=== PATIENT | female | born 1960 | race Two or more races ===

== ENCOUNTER 2020-03-01 16:21 | Emergency (ER) | payer MEDICAID, OTHER ==
[~2020-03-01] VITALS: Ht 160 cm; Wt 59.0 kg
[2020-03-01 16:21] VITALS: BP 120/92
[~2020-03-01 16:21] MED LIST: ALBUTEROL SULF8.5 GM INH; LEVAQUIN750 MG ORAL; NKM
--- NOTE | 2020-03-01 16:21 | NUR ---
ED Nurse Note: Patient DOMENICA RAApolinar from home c/o generalized weakness. Per EMS, a licensed master social worker came by for wellness check and said pt is weaker than usual and looks like she has not been eating well. Pt is AAOx2, verbally responsive. Not in acute distress. Pt placed on quality assurance monitor body. ERMD at bedside.
--- NOTE | 2020-03-01 16:33 | Emergency Room Report ---
History of Present Illness General Chief Complaint: Generalized Weakness Source: Patient Present Illness HPI Disclaimer: Please note that this report is being documented using DRAGON technology. This can lead to erroneous entry secondary to incorrect interpretation by the dictating instrument. HPI: 59-year-old female with no reported medical history presents for evaluation of generalized weakness. She arrives by EMS. Story is somewhat difficult to obtain from patient however according to EMS it seems either a neighbor or social secretary called EMS over concern that she has not been eating and has been generally weak, unable to move around her house. The patient herself denies any complaints at this time aside from feeling weak. Patient reported some dizziness earlier in the day but denied syncope. Currently denies dizziness. She denies chest pain, palpitations, shortness of breath, nausea, vomiting, diarrhea. PMH: Denied PSH: Denied Allergies: Denied Social Hx: Denied alcohol, tobacco or drug use Allergies: Coded Allergies: No Known Allergies (Unverified , 03/07/14) COVID-19 Screening Contact w/high risk pt: No Recent Travel to affected area: No Experienced COVID-19 symptoms?: No COVID-19 Testing performed BACK PADDER: No Patient History Last Menstrual Period: na Nursing Documentation-PMH Past Medical History: No History, Except For History Of Psychiatric Problem: Yes Review of Systems All Other Systems: negative except mentioned in HPI Physical Exam Vital Signs Date Time Temp Pulse Resp B/P (MAP) Pulse Ox O2 Delivery O2 Flow Rate FiO2 03/01/20 16:13 98.2 106 20 120/92 (101) 98 Room Air General: Awake and alert, no acute distress HEENT: NC/AT. EOMI. PERRLA. Cardiovascular: Slightly tachycardic. S1 and S2 normal. No murmur appreciated Resp: Normal work of breathing. No cough, wheezing or crackles appreciated Abdomen: Abdomen is soft, nondistended. Nontender Skin: Intact. No abrasions, laceration or rash over the exposed skin MSK: Normal tone and bulk. Moving all extremities. No obvious deformity. No lower extremity edema Neuro: Awake and alert. Mentating appropriately. Procedures Critical Care Time Critical Care Time Total critical care time: Approximately 31 minutes Due to a high probability of clinically significant, life threatening deterioration, the patient required the highest level of preparedness to intervene emergently and I personally spent this critical care time directly and personally managing the patient. This critical care time included obtaining a history, examining the patient, pulse oximetry, ordering and reviewing studies , ordering treatments, evaluating response to treatment and updating management plan as needed, frequent reassessment and discussion with other providers as well as arranging for ultimate disposition. This critical to care time was performed to assess and manage the high probability of life-threatening deterioration that could result in multiorgan failure. This critical care time is separate from the separately billable procedures and treating other patients. Medical Decision Making Diagnostic Impression: Primary Impression: UTI (urinary tract infection) Additional Impressions: Weakness Dehydration Hypokalemia ER Course This a 59-year-old female presenting for evaluation of generalized weakness and dizziness. Differential includes was not limited to malnutrition, dehydration, electrolyte abnormality, ACS, UTI to name a few. Similar presentation several weeks ago patient was transferred to a short-term hospital. Will obtain EKG, broad labs, provide IV fluids. She is in no distress at this time arrives slightly tachycardic but otherwise normal vital signs. Laboratory Tests Test 03/01/20 16:46 03/01/20 17:50 White Blood Count 10.1 K/UL (4.8-10.8) Red Blood Count 3.59 M/UL (4.20-5.40) L Hemoglobin 9.0 G/DL (12.0-16.0) L Hematocrit 29.2 % (37.0-47.0) L Mean Corpuscular Volume 81 FL (80-99) Mean Corpuscular Hemoglobin 25.1 PG (27.0-31.0) L Mean Corpuscular Hemoglobin Concent 30.8 G/DL (32.0-36.0) L Red Cell Distribution Width 19.7 % (11.6-14.8) H Platelet Count 366 K/UL (150-450) Mean Platelet Volume 8.4 FL (6.5-10.1) Neutrophils (%) (Auto) 59.5 % (45.0-75.0) Lymphocytes (%) (Auto) 36.3 % (20.0-45.0) Monocytes (%) (Auto) 2.9 % (1.0-10.0) Eosinophils (%) (Auto) 0.4 % (0.0-3.0) Basophils (%) (Auto) 0.9 % (0.0-2.0) Sodium Level 153 MMOL/L (136-145) H Potassium Level 2.7 MMOL/L (3.5-5.1) *L Chloride Level 113 MMOL/L (98-107) H Carbon Dioxide Level 22 MMOL/L (21-32) Anion Gap 19 mmol/L (5-15) H Blood Urea Nitrogen 44 mg/dL (7-18) H Creatinine 1.2 MG/DL (0.55-1.30) Estimated Glomerular Filtration Rate 45.7 mL/min (>60) Glucose Level 112 MG/DL (74-106) H Calcium Level 13.0 MG/DL (8.5-10.1) H Phosphorus Level 2.2 MG/DL (2.5-4.9) L Magnesium Level 2.1 MG/DL (1.8-2.4) Total Bilirubin 0.2 MG/DL (0.2-1.0) Aspartate Amino Transferase (AST) 18 U/L (15-37) Alanine Aminotransferase (ALT) 16 U/L (12-78) Alkaline Phosphatase 140 U/L (46-116) H Troponin I 0.018 ng/mL (0.000-0.056) Total Protein 6.4 G/DL (6.4-8.2) Albumin 2.9 G/DL (3.4-5.0) L Globulin 3.5 g/dL Albumin/Globulin Ratio 0.8 (1.0-2.7) L Urine Color Brown Urine Appearance Cloudy Urine pH 6 (4.5-8.0) Urine Specific [place] 1.025 (1.005-1.035) Urine Protein 3+ (NEGATIVE) H Urine Glucose (UA) Negative (NEGATIVE) Urine Ketones 2+ (NEGATIVE) H Urine Blood 2+ (NEGATIVE) H Urine Nitrite Negative (NEGATIVE) Urine Bilirubin 2+ (NEGATIVE) H Urine Ictotest Negative (NEGATIVE) Urine Urobilinogen Normal MG/DL (0.0-1.0) Urine Leukocyte Esterase 3+ (NEGATIVE) H Urine RBC 5-10 /HPF (0 - 2) H Urine WBC Tntc /HPF (0 - 2) H Urine Squamous Epithelial Cells Many /LPF (NONE/OCC) H Urine Bacteria Many /HPF (NONE) H EKG Diagnostic Results EKG Time: 16:44 Rate: tachycardiac Rhythm: NSR ST Segments: no acute changes Other Impression Sinus tachycardia, normal axis, normal intervals, nonspecific T wave flattening Rhythm Strip Diag. Results Rhythm Strip Time: 16:44 EP Interpretation: yes Rate: 110s Rhythm: no PVC's, no ectopy Reevaluation Time: 20:18 Last Vital Signs Date Time Temp Pulse Resp B/P (MAP) Pulse Ox O2 Delivery O2 Flow Rate FiO2 03/01/20 16:13 98.2 106 20 120/92 (101) 98 Room Air Reevaluation Impression CBC shows a normocytic anemia with a hemoglobin of 9.0. Chemistry shows a critically low potassium at 2.7 without EKG changes. Sodium elevated 153 as his BUN consistent with dehydration. Creatinine within normal range at 1.2. Troponin within normal limits. Urinalysis concerning for acute urinary tract infection with positive inflammatory markers, innumerable white cells and many bacteria. She is receiving ceftriaxone and IV and oral potassium. Patient initially presented tachycardic but all vital signs are now within normal limits. Patient is in no distress. Patient will require admission and she will be transferred to [facility], per her insurance plan Disposition: SHORT-TERM HOSP Condition: Stable Ever Portillo MD March 01, 2020 16:33
--- NOTE | 2020-03-01 16:45 | NUR ---
ED Nurse Note: IV line established by EMT captain waiter/waitress. Blood specimen collected and sent to lab.
[2020-03-01 17:21] LABS: ALANINE AMINOTRANSFERASE 16 U/L (12-78); ALBUMIN 2.9 G/DL (3.4-5.0); ALBUMIN/GLOBULIN RATIO 0.8 (1.0-2.7); ALKALINE PHOSPHATASE 140 U/L (46-116); ANION GAP 19 mmol/L (5-15); ASPARTATE AMINO TRANSFERASE 18 U/L (15-37); BILIRUBIN,TOTAL 0.2 MG/DL (0.2-1.0); BLOOD UREA NITROGEN 44 mg/dL (7-18); CARBON DIOXIDE 22 MMOL/L (21-32); CHLORIDE 113 MMOL/L (98-107); CREATININE 1.2 MG/DL (0.55-1.30); PHOSPHORUS 2.2 MG/DL (2.5-4.9); SODIUM 153 MMOL/L (136-145)
[2020-03-01 17:29] LABS: POTASSIUM 2.7 MMOL/L (3.5-5.1)
[2020-03-01 17:42] LABS: BASOPHILS % (AUTO) 0.9 % (0.0-2.0); EOSINOPHILS % (AUTO) 0.4 % (0.0-3.0); HEMATOCRIT 29.2 % (37.0-47.0); LYMPHOCYTES % (AUTO) 36.3 % (20.0-45.0); MEAN CORPUSCULAR VOLUME 81 FL (80-99); MONOCYTES % (AUTO) 2.9 % (1.0-10.0); NEUTROPHILS % (AUTO) 59.5 % (45.0-75.0); PLATELET COUNT 366 K/UL (150-450); RED BLOOD COUNT 3.59 M/UL (4.20-5.40); RED CELL DISTRIBUTION WIDTH 19.7 % (11.6-14.8); WHITE BLOOD COUNT 10.1 K/UL (4.8-10.8)
--- NOTE | 2020-03-01 17:54 | NUR ---
ED Nurse Note: Urine collected and sent.
[2020-03-01 18:42] LABS: APPEARANCE,URINE CLOUDY; BILIRUBIN, URINE 2+ (NEGATIVE); GLUCOSE, URINE (UA) NEGATIVE (NEGATIVE); KETONES,URINE 2+ (NEGATIVE); LEUKOCYTE ESTERASE ,URINE 3+ (NEGATIVE); NITRITE,URINE NEGATIVE (NEGATIVE); PH,URINE 6 (4.5-8.0); PROTEIN,URINE 3+ (NEGATIVE); UROBILINOGEN,URINE NORMAL MG/DL (0.0-1.0)
[2020-03-01 18:43] LABS: COLOR,URINE BROWN
--- NOTE | 2020-03-01 19:05 | NUR ---
HAND-OFF: Report given to Carrillo VOGEL.
[2020-03-01 19:15] VITALS: BP 128/78
--- NOTE | 2020-03-01 19:15 | NUR ---
ED Nurse Note: received report from Damian VOGEL. misbah DAVIS.
[2020-03-01] MEDS ORDERED: cefTRIAXone 1 GM in NS 55 ML IVPB ONE (19:30)
[2020-03-01 21:13] VITALS: BP 123/84
--- NOTE | 2020-03-01 21:13 | NUR ---
ED Nurse Note: pt consent signed for transfer. misbah lancaster.
--- NOTE | 2020-03-01 21:36 | NUR ---
ED Nurse Note: gave report to [facility] [place].
--- NOTE | 2020-03-01 21:42 | NUR ---
ED Nurse Note: gave report to Lizet George RN at [facility]
[2020-03-01 21:45] VITALS: BP 123/84
--- NOTE | 2020-03-01 21:45 | NUR ---
TRANSFER TO FLOOR: Patient transferred to [facility] via [facility] in stable condition via gurney as ordered, per dr. Parks . Report given to Lizet George RN and [place] with [facility]. Belongings sent with patient.
== END 2020-03-01 21:45 | disposition short-term general hospital (02) ==
LOC: EDBD 16:21 → EMR 16:30 → EDBEDREQ 17:30 → EDBEDREQSVC 17:30 → EMR 21:45
DX: N39.0 Urinary tract infection, site not specified (principal); R53.1 Weakness; E86.0 Dehydration; E87.6 Hypokalemia
CPT/HCPCS: 36415; 80053; 81003; 83735; 84100; 84484; 85025; 87086; 87181; 93005; 96361; 96365; 96367; J0696; J3480; J7030; Z7502; 99284; J8499